=== PATIENT | female | born 1995 | race African-American/Black ===

== ENCOUNTER 2022-12-05 20:25 | Inpatient (IN) | payer OTHER ==
[2022-12-05] MEDS: ELECTROLYTE-148 SOLN 1,000 ML IV SCH (21:00)
[2022-12-05] MEDS ORDERED: DINOPROSTONE 10 MG VAGINAL SUPPOSITORY VG ONE (21:15)
[2022-12-05 21:36] VITALS: BMI 30.9
[2022-12-05 21:40] LABS: BASO % 0.4 % (0-2.0); EOS % 0.3 % (0-4.5); HEMATOCRIT 34.9 % (32.4-45.2); HEMOGLOBIN 11.4 GM/dL (10.7-15.3); LYMPH % 13.7 % (8-40); MCH 28.8 pg (25.7-33.7); MCHC 32.7 g/dl (32.0-36.0); MEAN PLT VOLUME 10.2 fl (7.5-11.1); MONO % 7.1 % (3.8-10.2); NEUT % 78.5 % (42.8-82.8); PLATELET COUNT 147 10^3/uL (134-434); RBC 3.97 M/mm3 (3.60-5.2); RDW 14.7 % (11.6-15.6); WHITE BLOOD COUNT 7.5 K/mm3 (4.0-10.0)
[2022-12-05 21:46] LABS: INR 0.9 (0.83-1.09); PROTHROMBIN TIME (PATIENT) 10.4 SEC (9.7-13.0)
[2022-12-05 21:49] LABS: ACTIVATED PTT 24.1 SECONDS (25.2-36.5)
[2022-12-05 22:12] LABS: POTASSIUM 4.1 mmol/L (3.5-5.1)
[2022-12-05 22:13] LABS: CALCIUM 9.2 mg/dL (8.5-10.1)
[2022-12-05 22:14] LABS: BLOOD UREA NITROGEN 10.6 mg/dL (7-18)
[2022-12-05 22:17] LABS: CREATININE 0.7 mg/dL (0.55-1.3)
[2022-12-06] MEDS: ELECTROLYTE-148 SOLN 1,000 ML IV SCH ×2 (04:30→08:15)
[2022-12-06] MEDS ORDERED: OXYTOCIN 30 UNITS in 0.9% NS 30 UNIT/500 ML INFUS.BAG IVPB SCH (07:45)
[2022-12-06] MEDS ORDERED: FENTANYL/BUPIVACAINE/NS/PF - PCEA - 50 ML DISP.SYRIN EP ONE ×3 (08:59→12:41)
[2022-12-06] MEDS ORDERED: FENTANYL CITRATE/PF 50 MCG/ML VIAL ONE (09:03)
[2022-12-06] MEDS ORDERED: OXYTOCIN 30 UNITS in 0.9% NS 30 UNIT/500 ML INFUS.BAG IVPB ONE (09:53)
[2022-12-06] MEDS ORDERED: FENTANYL/BUPIVACAINE/NS/PF - PCEA - 50 ML DISP.SYRIN EP SCH ×2 (10:30)
[2022-12-06] MEDS ORDERED: NALOXONE HCL 0.4 MG/ML VIAL IVPUSH PRN (10:30)
[2022-12-06] MEDS ORDERED: LIDOCAINE HCL 1% PRESERVATIVE FREE - 30ML VIAL ONE (13:35)
[2022-12-06] MEDS ORDERED: OXYTOCIN 20 UNITS in 0.9% NS 20 UNIT/1,000 ML INFUS.BAG IV ONE (13:35)
[2022-12-06] MEDS ORDERED: oxyCODONE HCL 5 MG TABLET PO PRN (14:25)
[2022-12-06] MEDS ORDERED: ACETAMINOPHEN 325 MG TABLET (FP) PO PRN (14:25)
[2022-12-06] MEDS ORDERED: BENZOCAINE 20% 57 GM BOTTLE TP PRN (14:25)
[2022-12-06] MEDS ORDERED: WITCH HAZEL 50% (TUCKS) 40 PAD/JAR PAD TP PRN (14:25)
[2022-12-06] MEDS ORDERED: BENZOCAINE 28 GM HEMORRHOIDAL OINTMENT TP PRN (14:25)
[2022-12-06] MEDS ORDERED: METHYLERGONOVINE MALEATE 0.2 MG/1 ML AMP IM PRN (14:25)
[2022-12-06] MEDS ORDERED: BISACODYL 10 MG SUPP.RECT RC PRN (14:25)
[2022-12-06] MEDS ORDERED: OXYTOCIN 20 UNITS in 0.9% NS 20 UNIT/1,000 ML INFUS.BAG IV SCH (14:30)
[2022-12-06 15:58] LABS: HIV INTERPRETATION NEGATIVE (NEGATIVE)
[2022-12-06] MEDS: IBUPROFEN 600 MG TABLET (FP) PO PRN (19:41)
[2022-12-07] MEDS: IBUPROFEN 600 MG TABLET (FP) PO PRN ×3 (04:21→15:53)
[2022-12-07 06:43] LABS: BASO % 0.3 % (0-2.0); EOS % 0.3 % (0-4.5); HEMATOCRIT 31.8 % (32.4-45.2); HEMOGLOBIN 10.4 GM/dL (10.7-15.3); LYMPH % 9.8 % (8-40); MCH 28.8 pg (25.7-33.7); MCHC 32.7 g/dl (32.0-36.0); MEAN CELL VOLUME 88.2 fl (80-96); MEAN PLT VOLUME 9.9 fl (7.5-11.1); MONO % 4.9 % (3.8-10.2); NEUT % 84.7 % (42.8-82.8); PLATELET COUNT 122 10^3/uL (134-434); RDW 14.8 % (11.6-15.6); WHITE BLOOD COUNT 11.4 K/mm3 (4.0-10.0)
[2022-12-07] MEDS: PRENATAL VITAMINS W/ FOLIC ACID TABLET (FP) PO SCH (09:52)
[2022-12-07] MEDS ORDERED: SENNOSIDES/DOCUSATE COMBO (SENNA PLUS) TABLET (UD) PO PRN (22:00)
[2022-12-08 00:43] VITALS: RESP 18
[2022-12-08] MEDS: IBUPROFEN 600 MG TABLET (FP) PO PRN (00:45)
[2022-12-08] MEDS: PRENATAL VITAMINS W/ FOLIC ACID TABLET (FP) PO SCH (09:04)
[2022-12-08 09:08] VITALS: BP 105/71; PULSE 83; TEMP 98.3
== END 2022-12-08 15:30 | disposition home or self-care (01) | DRG 807 ==
LOC: JLDR 20:25 → J3W 12-06 16:40
PROVIDERS: ADMIT Obstetrics & Gynecology; ATTEND Obstetrics & Gynecology
PROC: 10E0XZZ Delivery of Products of Conception, External Approach (ICD-10-PCS; principal; 2022-12-06)
PROC: 0HQ9XZZ Repair Perineum Skin, External Approach (ICD-10-PCS; 2022-12-06)
DX: O48.0 Post-term pregnancy (principal); Z37.0 Single live birth; O70.0 First degree perineal laceration during delivery; Z3A.40 40 weeks gestation of pregnancy
CPT/HCPCS: 36415; 80048; 85025; 85610; 85730; 86780; 86850; 86900; 86901; 87389